=== PATIENT | male | born 1950 | race Caucasian/White ===

== ENCOUNTER 2018-11-28 08:53 | Outpatient (CLI) | payer MEDICARE, OTHER ==
--- NOTE | 2018-11-28 16:29 | Ultrasound Report ---
Reason: SCREENING FOR AAA,ENCOUNTER FOR SCREENING FOR LUNG Procedure Date: 11/28/2018 Accession Number: [id number] / [id number] Procedure: US - Aorta Screening CPT Code: FULL RESULT: EXAM: AORTIC DOPPLER ULTRASOUND EXAM DATE: 11/28/2018 09:35 AM. CLINICAL HISTORY: SCREENING FOR AAA, COMPARISON: None. TECHNIQUE: Real-time sonographic imaging of retroperitoneal vascular structures, including color-flow, Doppler flow and spectral analysis was performed by the bell spinner sousaphones. Multiple junior sales representative static images were saved for review. FINDINGS: Aorta: The abdominal aorta was adequately seen. No evidence for abdominal aortic aneurysm. Aortic measurements: Proximal sagittal plane AP: 2.7 cm Mid transverse plane: 1.9 x 2 cm Distal transverse plane: 1.7 x 1.9 cm. Iliac Vessels: The proximal common iliac arteries are normal in caliber. The right measures 1 x 1 cm in the transverse plane, the left 1.1 x 1 cm. Other: None. IMPRESSION: Normal. No abdominal aortic aneurysm. [facility]
== END 2018-11-28 08:54 | disposition home or self-care (01) ==
LOC: DI 08:53
PROVIDERS: ATTEND Family Medicine
DX: Z13.6 Encounter for screening for cardiovascular disorders (principal); Z11.59 Encounter for screening for other viral diseases; Z12.2 Encounter for screening for malignant neoplasm of respiratory organs
CPT/HCPCS: 76706

== ENCOUNTER 2019-10-05 09:30 | Outpatient (CLI) | payer MEDICARE, OTHER ==
[2019-10-05 10:23] LABS: CALCIUM 10.3 mg/dL (8.5-10.3); CREATININE 0.8 mg/dL (0.6-1.2)
[2019-10-05] MEDS ORDERED: IOVERSOL 320 100 ML VIAL IVP ONE (11:02)
[2019-10-05] MEDS ORDERED: IOVERSOL 320 50 ML VIAL PO ONE (11:02)
--- NOTE | 2019-10-05 16:14 | CT Report ---
Reason: ABN CECUM ON COLONOSCOPY Procedure Date: 10/05/2019 Accession Number: [id number] / [id number] Procedure: CT - Abdomen/Pelvis W CPT Code: Final Report FULL RESULT: EXAM: CT ABDOMEN AND PELVIS EXAM DATE: 10/05/2019 10:59 AM. CLINICAL HISTORY: Abnormal cecum on colonoscopy. COMPARISONS: None. TECHNIQUE: Routine helical CT imaging was performed through the abdomen and pelvis. IV contrast: Optiray 320 90 mL. Enteric contrast: Yes. Reconstructions: Coronal and sagittal. In accordance with CT protocol optimization, one or more of the following dose reduction techniques were utilized for this exam: automated exposure control, adjustment of mA and/or KV based on patient size, or use of iterative reconstructive technique. FINDINGS: Lung Bases: Unremarkable. Liver: Normal. No masses. Gallbladder/Bile Ducts: Unremarkable. Spleen: Normal. Pancreas: Normal. Adrenal Glands: Normal. Kidneys: Nonobstructing 6 mm right renal calculus. No hydronephrosis. Peritoneal Cavity/Bowel: There is no bowel obstruction. There is prominent colonic stool burden with fecalized material also visualized in the distal small bowel, contrast has progressed to mid small bowel. There is no free fluid or free air. There is colonic diverticulosis without diverticulitis identified. There is no lymphadenopathy by size criteria. Pelvic Organs: Prominent size of prostate lifting the bladder dome, prostatic hypertrophy. Vasculature: No aneurysms or other significant abnormality. Bones: No significant abnormality. Other: None. IMPRESSION: Stool burden including prominence of fecal pattern and distal small bowel can be seen with constipation. No evidence of metastatic disease to the liver or abdominopelvic lymphadenopathy. [facility]
== END 2019-10-05 09:31 | disposition home or self-care (01) ==
LOC: LAB 09:30
PROVIDERS: ATTEND Surgery
DX: R93.3 Abnormal findings on diagnostic imaging of other parts of digestive tract (principal)
CPT/HCPCS: 36415; 74177; 80048; Q9967